=== PATIENT | male | born 1940 | race Caucasian/White ===

== ENCOUNTER → 2016-12-16 | Outpatient (REF) | payer MEDICARE ==
[2016-12-16 12:29] LABS: ALBUMIN 3.4 GM/DL (3.2-5.2); ALBUMIN/GLOBULIN RATIO 0.92 (1.00-1.93); ALKALINE PHOSPHATASE 82 U/L (45-117); ALT/SGPT 25 U/L (12-78); ANION GAP 7 MEQ/L (8-16); AST/SGOT 22 U/L (15-37); BILIRUBIN,TOTAL 0.5 MG/DL (0.2-1.0); BLOOD UREA NITROGEN 22 MG/DL (7-18); CALCIUM LEVEL 8.7 MG/DL (8.8-10.2); CARBON DIOXIDE LEVEL 29 MEQ/L (21-32); CHLORIDE LEVEL 109 MEQ/L (98-107); CHOLESTEROL LEVEL 101 MG/DL (<200); CREATININE FOR GFR 0.86 MG/DL (0.70-1.30); GLOMERULAR FILTRATION RATE > 60.0 (>42); GLUCOSE, FASTING 83 MG/DL (83-110); POTASSIUM SERUM 4.4 MEQ/L (3.5-5.1); SODIUM LEVEL 145 MEQ/L (136-145); TOTAL PROTEIN 7.1 GM/DL (6.4-8.2); TRIGLYCERIDES LEVEL 82 MG/DL (<150)
== END ==
LOC: M SFHCCLAY 09:31
PROVIDERS: ATTEND Family Medicine
DX: E78.5 Hyperlipidemia, unspecified (principal)

== ENCOUNTER → 2017-11-17 | Outpatient (REF) | payer MEDICARE ==
[2017-11-17 13:50] LABS: ALBUMIN 3.6 GM/DL (3.2-5.2); ALBUMIN/GLOBULIN RATIO 0.97 (1.00-1.93); ALKALINE PHOSPHATASE 85 U/L (45-117); ALT/SGPT 28 U/L (12-78); ANION GAP 6 MEQ/L (8-16); AST/SGOT 20 U/L (7-37); BILIRUBIN,TOTAL 0.7 MG/DL (0.2-1.0); BLOOD UREA NITROGEN 17 MG/DL (7-18); CALCIUM LEVEL 8.8 MG/DL (8.8-10.2); CARBON DIOXIDE LEVEL 28 MEQ/L (21-32); CHLORIDE LEVEL 108 MEQ/L (98-107); CHOLESTEROL LEVEL 90 MG/DL (<200); CHOLESTEROL RISK RATIO 2.432 (<5); CREATININE FOR GFR 0.93 MG/DL (0.70-1.30); GLOMERULAR FILTRATION RATE > 60.0 (>42); GLUCOSE, FASTING 113 MG/DL (70-100); HDL CHOLESTEROL 37 MG/DL (>40); LDL CHOLESTEROL 32 MG/DL (<100); NON-HDL-C 53 MG/DL; POTASSIUM SERUM 4.2 MEQ/L (3.5-5.1); SODIUM LEVEL 142 MEQ/L (136-145); TOTAL PROTEIN 7.3 GM/DL (6.4-8.2); TRIGLYCERIDES LEVEL 105 MG/DL (<150)
== END ==
LOC: M SFHCCLAY 08:50
DX: E78.5 Hyperlipidemia, unspecified (principal)
CPT/HCPCS: 80053

== ENCOUNTER → 2018-06-29 | Outpatient (CLI) | payer OTHER ==
--- NOTE | 2018-07-11 11:14 | REP ---
Left foot series: Four views. Repeat dictation. History: Left foot pain. The patient reports history of fracture last January with surgery. Recent injury to the lateral aspect of the foot with a palpable lump and pain; "like a screw is come out." The study was acquired on June 29, 2018 and is presented to me for interpretation on July 11, 2018. Radiographic findings: Four views of the left foot demonstrate overall normal mineralization. There are Achilles and plantar calcaneal spurs. There is a screw plate fixation device in the distal fifth metatarsal. The distal fifth metatarsal fracture appears to be healed. One of the screws in the distal aspect of the plate along the lateral aspect of the fifth metatarsal is partially withdrawn and it is producing a bulge in the overlying skin. No acute fracture is seen. Soft tissue swelling is noted in this region. Impression: Status post open reduction internal fixation for fifth metatarsal fracture with screw plate fixation device. One of the distal fixation screws in the distal fifth metatarsal is partially withdrawn. Electronically Signed by Markell James MD 07/11/2018 11:05 A
== END ==
LOC: M CLY 09:37
PROVIDERS: ATTEND Family Medicine
DX: M79.672 Pain in left foot (principal); Z98.890 Other specified postprocedural states
CPT/HCPCS: 73630; G0463

== ENCOUNTER 2018-07-15 14:08 | Inpatient (IN) | payer OTHER ==
[~2018-07-15] VITALS: Ht 170.2 cm; Wt 77.8 kg
--- NOTE | 2018-07-15 15:08 | REP ---
PORTABLE CHEST X-RAY: Single view. HISTORY: Cough. COMPARISON STUDY: September 27, 2012. FINDINGS: Median sternotomy wires are seen. The lungs are well inflated and clear. Heart is not felt to be enlarged. Pulmonary vasculature is not increased. Pleural angles are sharp. No significant bony abnormality is seen. IMPRESSION: Prior sternotomy. No acute disease. Electronically Signed by Markell James MD 07/15/2018 03:34 P
[2018-07-15] MEDS ORDERED: CALC600T5 PO (15:14)
[2018-07-15] MEDS ORDERED: ATOR40TA75 PO (15:14)
[2018-07-15] MEDS ORDERED: ASPI81TA26 PO (15:14)
[2018-07-15] MEDS ORDERED: FISH1000 PO (15:14)
[2018-07-15] MEDS ORDERED: TERA2CAP3 PO (15:14)
[2018-07-15] MEDS ORDERED: LISI-1046 PO (15:14)
[2018-07-15] MEDS ORDERED: METO25TA4 PO (15:14)
[2018-07-15] MEDS ORDERED: FLON1SPR (15:14)
[2018-07-15] MEDS ORDERED: OMEP-218 PO (15:14)
[2018-07-15] MEDS ORDERED: RANI1TAB6 PO (15:14)
[2018-07-15] MEDS ORDERED: VITA400C56 PO (15:14)
[2018-07-15] MEDS ORDERED: LUTE20CA PO (15:14)
--- NOTE | 2018-07-15 15:55 | CR.PDOC ---
General Date of Consultation: July 15, 2018 Referring Provider: ZENIA YUEN DO Attending Physician: CLIFTON SHERWOOD MD Consultation REASON FOR CONSULTATION/CHIEF COMPLAINT: L foot hardware infection. HISTORY OF PRESENT ILLNESS: Patient is a 78 y/o male who is s/p L 5th metatarsal ORIF January 25, 2018 while [place]. He had an uneventful postoperative course until a few weeks ago where he had increasing foot pain and was seen by his primary care doctor where an xray was taken and it was discovered that one of the screws was backing out. He noticed purulent drainage from the distal aspect of the wound yesterday and presented to the [facility] ED where a distal screw was found to be exposed and removed manually by the ED provider. Orthopedics was consulted for further management and the patient was transferred here for definitive treatment. The patient denied any fevers or chills at home but was found to have a Temp >100F at [place] and given a dose of tylenol. Patient also received 1g IV cefazolin prior to transfer. ALLERGIES: Please see below. HOME MEDICATIONS: Please see below. PAST MEDICAL HISTORY: 1. CAD. 2. Hypertension. 3. hyperlipidemia 4. GERD PAST SURGICAL HISTORY: 1. L foot 5th MT ORIF per HPI 2. CABG 10 years ago 3. Hernia repair 4. Skin cancer removal FAMILY HISTORY: non contributory SOCIAL HISTORY: Patient is retired. Lives with his in [place] during the spring/summer and resides in [place] in the winter. Does not smoke or use illicit drugs REVIEW OF SYSTEMS: CONSTITUTIONAL: + Fever at OSH, no chills or night sweats. HEENT: No headache, neck pain, or visual disturbance. CARDIOVASCULAR: + history of CABG. No recent chest pain, palpitations. RESPIRATORY: No cough, wheeze, SOB. GENITOURINARY: No pain or burning with urination. MUSCULOSKELETAL: L foot draining wound and MT ORIF per HPI. GASTROINTESTINAL: No nausea, vomiting, or diarrhea. NEUROLOGICAL: No seizures, dizziness, extremity numbness. PHYSICAL EXAMINATION: VITAL SIGNS: Please see below. GENERAL APPEARANCE: Well nourished male, appears stated age, no acute distress. HEENT: Normocephalic, atraumatic. RESPIRATORY: Non labored breathing. CARDIOVASCULAR: RRR, 2+ DP/PT pulses, BCR all digits LLE. EXTREMITIES: Focused exam of the left foot demonstrates a punctate wound at the distal lateral aspect of the forefoot with surrounding fibrinous exudative tissue. The remainder of the incision is intact with surrounding erythema, but minimal induration. No tenderness along the shaft of the metatarsal. Able to independently flex/extend all digits of the L foot with full painless ROM of the left ankle. NEUROLOGICAL: Sensation/motor intact in LLE tibial, sural, saphenous, SPN, DPN distributions. Radiographs: Plain radiographs of the left foot taken at the outside hospital (after loose screw was removed in the ED) were reviewed demonstrating plate/screw construct of the 5th metatarsal with no further evidence of screw backout or other hardware failure. Fracture appears healed/ LABORATORY DATA: Please see below. Inflammatory markers obtained at the OSH demonstrate normal WBC, elevated ESR and CRP ASSESSMENT: 78 y/o male with L foot infected hardware s/p MT ORIF January 2018 with radiographically healed fracture PLAN: I discussed with the patient the nature of his condition. Given that a screw backed out and penetrated through the skin, by definition this represents a hardware infection and the patient would benefit from operative irrigation and debridement and hardware removal. The risks and benefits to include pain, bleeding, continued infection, nerve/blood vessel injury, refracture, and anesthesia complications were discussed with the patient and he has expressed understanding and elected to proceed with Left foot irrigation and debridement and hardware removal. I counseled the patient that I will be his operating surgeon but his follow up care will be conducted by the [facility] orthopedic group. He expressed understanding and provided informed consent. Given that the patient ate while in transport here, surgery will be planned for tomorrow 16 July. Recommendations: 1. NPO at midnight 2. Hold further antibiotics until intraoperative cultures taken 3. Admit to hospitalist service for preoperative medical optimization 4. May be WBAT pending surgery Vital Signs/I&O Vital Signs Date Time Temp Pulse Resp B/P (MAP) Pulse Ox O2 Delivery O2 Flow Rate FiO2 07/15/18 14:28 07/15/18 14:08 100.0 103 20 96 Room Air Allergies Coded Allergies: No Known Allergies (Unverified , 09/23/14) Home Medications Scheduled Aspirin (Aspirin EC) 81 Mg Tablet.dr, 81 MG PO QHS, #30 (Reported) Atorvastatin Calcium (Atorvastatin Calcium) 40 Mg Tablet, 40 MG PO QHS, (Reported) Calcium Carbonate (Calcium) 600 Mg Tablet, 600 MG PO DAILY, (Reported) Fluticasone Propionate (Flonase Allergy Relief) 9.9 Ml [place].susp, 1 SPRAY NA QHS, (Reported) Lisinopril (Lisinopril) 2.5 Mg Tablet, 2.5 MG PO QHS, (Reported) Lutein (Lutein) 20 Mg Capsule, 20 MG PO QHS, (Reported) Metoprolol Tartrate (Metoprolol Tartrate) 25 Mg Tablet, 12.5 MG PO BID, (Reported) [place]-3 Fatty Acids/Fish Oil (Fish Oil 1,000 mg Capsule) 1 Each Capsule, 1,000 MG PO DAILY, (Reported) Omeprazole (Omeprazole) 20 Mg Capsule.dr, 20 MG PO Q2D, (Reported) TAKES ONCE DAILY EVERY OTHER DAY - ALTERNATES WITH RANITIDINE Ranitidine HCl (Ranitidine HCl) 150 Mg Tablet, 1 TAB PO Q2D, (Reported) TAKES TWICE A DAY EVERY OTHER DAY - ALTERNATES WITH OMEPRAZOLE Terazosin HCl (Terazosin HCl) 2 Mg Capsule, 2 MG PO QHS, (Reported) Vitamin E (Vitamin E) 400 Unit Capsule, 400 UNIT PO DAILY, (Reported) CLIFTON SHERWOOD MD July 15, 2018 15:55
--- NOTE | 2018-07-15 17:16 | ECGEPIP ---
Stationary ECG Study [facility] - ED Test Date: 2018-07-15 Pat Name: GARY WALSH Department: Room: [place] [address] Gender: M Candy Packer: apple : 1940 Requested By: ZENIA Payne Order Number: [id number] Reading MD: Michael Griffin Measurements Intervals [place] Rate: 94 P: 25 IA: 178 QRS: -13 QRSD: 90 T: 64 QT: 344 QTc: 432 Interpretive Statements SINUS RHYTHM NSTTW ABNORMALITIES NO PRIORS FOR COMPARISON Electronically Signed On 07-15-2018 17:16:42 EDT by Michael Griffin
[2018-07-15 17:45] VITALS: BP 139/69
--- NOTE | 2018-07-15 17:48 | HPEPDOC ---
[facility] Medical History & Physical Date of Admission July 15, 2018 Attending Physician: JEANIE ZAMUDIO MD History and Physical CHIEF COMPLAINT: Infection of L 5th metatarsal with expulsion of hardware HISTORY OF PRESENT ILLNESS: Patient is a 78 year-old white male, past medical history significant for CAD with 4-vessel CABG, HTN, hyperlipidemia, BPH, who presents to [facility] ED from [facility] for orthopedic consult. Patient shares that he fractured his L 5th metatarsal while cycling in [place] where he and his spend the guallpa. Patient underwent a repair with ORIF on January 25 2018. Patient reportedly recovered without sequela. Patient was seen by his primary for increasing foot pain about 4 weeks ago. An X-ray indicated one of his screws was being extruded from the bone. Yesterday morning, patient noted swelling and purulent drainage. He used topical antibiotic ointment and covered the lesion with a bandage. This morning, after increasing discomfort, patient presented to [facility] ED. During evaluation, the screw was manipulated completely free. Orthopedics at [facility] was consulted and the patient was transferred after a single 1g IV cefazolin for further management. In the ED, patient presented with a temperature of 100.0F and was given Tylenol. Patient was also seen and evaluated by Dr. Mosquera who agreed to take the patient to surgery at some point tomorrow. PAST MEDICAL HISTORY: 1. Coronary artery disease, status post CABG 2. Hypertension 3. Hyperlipidemia 4. Gastroesophageal reflux disease 6. BPH PAST SURGICAL HISTORY: 1. Fifth metatarsal, left foot fracture and ORIF, 01/22 2. 4 vessel bypass, 2008 3. Hernia repair 4. Skin cancer removal 4 SOCIAL HISTORY: Marital status: Resides in: Spends part-time in [place] in the summer months, [place] over the winter months. Employment: Retired Tobacco use: Denies smoking history ETOH: Reports occasional use Illicit drug use: Denies illicit drug use FAMILY HISTORY: Noncontributory given patient's advanced age ALLERGIES: Please see below. REVIEW OF SYSTEMS: CONSTITUTIONAL: Patient reports a temperature upon arrival to the emergency department with resolution following Tylenol. Patient denies any recent history of chills, night sweats, changes in weight or generalized fatigue HEENT: She denies headaches, changes in vision, difficulty swallowing CARDIOVASCULAR: Patient denies any chest pain/tightness/discomfort, denies palpitations RESPIRATORY: Patient denies any difficulty breathing, recent cough or wheeze, orthopnea or paroxysmal nocturnal dyspnea GASTROINTESTINAL: Patient reports a history of reflux for which he takes medication, denies upset stomach, abdominal pain, diarrhea or constipation. No recent nausea or vomiting GENITOURINARY: Patient takes medication for BPH, denies dysuria SKIN: Patient denies any new rashes, bruising, new or resolving skin lesions MUSCULOSKELETAL: Patient reports discomfort in the left lateral foot as per HPI, no other muscle aches or pains NEUROLOGICAL: Patient denies history of seizure, LOC, AMS HOME MEDICATIONS: Please see below. PHYSICAL EXAMINATION: VITAL SIGNS: Temperature 100.0, pulse 103, respiratory rate 20, blood pressure 132/71, pulse oximetry 96% on room air. GENERAL APPEARANCE: Patient was found to be seated upright in his emergency room bed. Wearing a hospital gown. He is in no acute distress, able to answer TelePh[employer] ns appropriately, and actively participate in his care HEENT: Head is normocephalic, atraumatic, EOMI, sclera nonicteric, good oral hygiene, trachea is midline, no cervical lymphadenopathy CARDIOVASCULAR: Regular rate and rhythm. Systolic ejection murmur appreciated left sternal border LUNGS: Clear to auscultation bilaterally, free of wheezes rales or rhonchi ABDOMEN: Soft, nontender, non-protuberant MUSCULOSKELETAL: Left foot, lateral aspect of the 5th metatarsal demonstrates swelling, erythema with minimal expressible drainage. Minimal surrounding induration and minimal tenderness. ROM of the infected appendage, forefoot and ankle intact. EXTREMITIES: No calf tenderness bilaterally, NEUROLOGICAL: No numbness or tingling, no focal neurologic deficits, patient is at baseline mentation per patient's who was at bedside PSYCHIATRIC: Mood and affect are appropriate LABORATORY DATA: See below. IMAGING: Chest x-ray (07/15/18): Prior sternotomy, no acute disease. ASSESSMENT: PLAN: Orthopedic hardware infection requiring revision -Plan to remove remaining hardware in the OR tomorrow with Dr. Mosquera -Start cefazolin 2 grams q8hrs IV -Full diet with order for NPO after midnight -Pain management per Orthopedics CAD -Continue home metoprolol -Hold Lisinopril Hyperlipidemia -Continue home atorvastatin BPH -Continue home Terazosin GERD -Famotidine -Omeprazole DVT PROPHYLAXIS: TEDs and Sequentials CODE STATUS: FULL CODE Vital Signs Vital Signs Date Time Temp Pulse Resp B/P (MAP) Pulse Ox O2 Delivery O2 Flow Rate FiO2 07/15/18 14:28 07/15/18 14:08 100.0 103 20 96 Room Air Home Medications Scheduled Aspirin (Aspirin EC) 81 Mg Tablet.dr, 81 MG PO QHS Atorvastatin Calcium (Atorvastatin Calcium) 40 Mg Tablet, 40 MG PO QHS Calcium Carbonate (Calcium) 600 Mg Tablet, 600 MG PO DAILY Fluticasone Propionate (Flonase Allergy Relief) 9.9 Ml [place].susp, 1 SPRAY NA QHS Lisinopril (Lisinopril) 2.5 Mg Tablet, 2.5 MG PO QHS Lutein (Lutein) 20 Mg Capsule, 20 MG PO QHS Metoprolol Tartrate (Metoprolol Tartrate) 25 Mg Tablet, 12.5 MG PO BID [place]-3 Fatty Acids/Fish Oil (Fish Oil 1,000 mg Capsule) 1 Each Capsule, 1,000 MG PO DAILY Omeprazole (Omeprazole) 20 Mg Capsule.dr, 20 MG PO Q2D TAKES ONCE DAILY EVERY OTHER DAY - ALTERNATES WITH RANITIDINE Ranitidine HCl (Ranitidine HCl) 150 Mg Tablet, 1 TAB PO Q2D TAKES TWICE A DAY EVERY OTHER DAY - ALTERNATES WITH OMEPRAZOLE Terazosin HCl (Terazosin HCl) 2 Mg Capsule, 2 MG PO QHS Vitamin E (Vitamin E) 400 Unit Capsule, 400 UNIT PO DAILY Allergies Coded Allergies: No Known Allergies (Unverified , 09/23/14) GME ATTESTATION GME ATTESTATION My faculty preceptor for this patient encounter was physically present during the encounter and was fully available. All aspects of the patient interview, examination, medical decision making process, and medical care plan development were reviewed and approved by the faculty preceptor. The faculty preceptor is aware and concurs with the plan as stated in the body of this note and will attest to such by his/her cosignature. ATTENDING NOTE I have personally interviewed the patient and done a physical examination. I have reviewed the residents's documentation and discussed the history and assessment and plan with him. I agree with the above documentation with the following addendum. Patient is low cardiac risk for the proposed procedure and is medically optimized at present. RUBY WERENR DO July 15, 2018 17:47 JEANIE ZAMUDIO MD July 16, 2018 14:32
[2018-07-15] MEDS ORDERED: ATORVASTATIN 20 MG TAB PO SCH (21:00)
[2018-07-15] MEDS ORDERED: TERAZOSIN 1 MG CAP PO SCH (21:00)
[2018-07-15] MEDS ORDERED: FLUTICASONE PROP 0.05% NASAL SPRAY 16 GM (FLONASE) NARES SCH (21:00)
[2018-07-15 22:00] VITALS: BP 146/76
[2018-07-15] MEDS: METOPROLOL TART 12.5 MG PER 1/2 TAB PO SCH (22:11)
[2018-07-16] VITALS (8 sets, daily range): BP systolic 103–141; BP diastolic 56–77
[2018-07-16 06:32] LABS: HEMATOCRIT 40.4 % (42.0-52.0); HEMOGLOBIN 13.2 g/dl (13.5-17.5); MEAN CORPUSCULAR HEMOGLOBIN 29.7 pg (27.0-33.0); MEAN CORPUSCULAR HGB CONC 32.7 g/dl (32.0-36.5); MEAN CORPUSCULAR VOLUME 90.8 fl (80.0-96.0); PLATELET COUNT, AUTOMATED 135 10^3/uL (150-450); RED BLOOD COUNT 4.45 10^6/uL (4.30-6.10); WHITE BLOOD COUNT 9.7 10^3/uL (4.0-10.0)
[2018-07-16 06:54] LABS: BLOOD UREA NITROGEN 18 MG/DL (7-18); CALCIUM LEVEL 8.6 MG/DL (8.8-10.2); CARBON DIOXIDE LEVEL 26 MEQ/L (21-32); CHLORIDE LEVEL 108 MEQ/L (98-107); CREATININE FOR GFR 1.01 MG/DL (0.70-1.30); GLOMERULAR FILTRATION RATE > 60.0 (>42); GLUCOSE, FASTING 110 MG/DL (70-100); POTASSIUM SERUM 4.1 MEQ/L (3.5-5.1); SODIUM LEVEL 139 MEQ/L (136-145)
[2018-07-16] MEDS ORDERED: FAMOTIDINE 20 MG TAB PO SCH (09:00)
[2018-07-16] MEDS ORDERED: LIDOCAINE 2% INJ 100 MG/5 ML SDV (FOR ANES.) As Ordered ONE (09:31)
[2018-07-16] MEDS ORDERED: PROPOFOL 200 MG/20 ML VIAL As Ordered ONE (09:31)
[2018-07-16] MEDS ORDERED: fentaNYL 100 MCG/2 ML INJECTION (J3010) As Ordered ONE (09:31)
[2018-07-16] MEDS ORDERED: MIDAZOLAM INJ 2 MG/2 ML VIAL (J2250) As Ordered ONE (09:31)
[2018-07-16] MEDS ORDERED: BUPIVACAINE HCL 0.5% 30 ML VIAL As Ordered ONE (09:32)
[2018-07-16] MEDS ORDERED: ceFAZolin 2 GM/D5W 50 ML IV BAG (J0690 PER 500MG) As Ordered ONE (09:32)
[2018-07-16] MEDS ORDERED: PHENYLephrine HCL 500 MCG/5 ML (100MCG/ML) SYRINGE (J2370) As Ordered ONE ×2 (09:33→10:06)
[2018-07-16] MEDS ORDERED: ONDANSETRON 4MG/2ML VIAL (J2405) As Ordered ONE (09:43)
[2018-07-16] MEDS ORDERED: dexameTHASONE 4 MG/ML 1ML VIAL (J1100) As Ordered ONE (09:43)
[2018-07-16] MEDS ORDERED: DESFLURANE 240 ML INHALANT As Ordered ONE (09:49)
[2018-07-16] MEDS ORDERED: fentaNYL 100 MCG/2 ML INJECTION (J3010) IV PRN (10:45)
--- NOTE | 2018-07-16 11:30 | REP ---
PORTABLE LEFT FOOT: TWO VIEWS. HISTORY: Postop evaluation. Hardware removal. Comparison study, June 29, 2018. FINDINGS: AP and lateral views of the left foot taken in an overlying sandal-shoe device confirms the presence of hardware removal from the 5th metatarsal. Plantar and Achilles calcaneal spurring is also noted. Electronically Signed by Markell James MD 07/16/2018 11:35 A
[2018-07-16] MEDS: METOPROLOL TART 12.5 MG PER 1/2 TAB PO SCH ×2 (11:52→20:48)
[2018-07-16] MEDS ORDERED: traMADol 50 MG TAB PO PRN ×2 (12:30)
[2018-07-16] MEDS ORDERED: ACETAMINOPHEN TAB 650MG DOSE (2X325MG) PO PRN (12:30)
--- NOTE | 2018-07-16 14:39 | IPNPDOC ---
Text Note Date of Service The patient was seen on 07/16/18. NOTE SUBJECTIVE: Pateint going to the OR today for removal of hardware from the left foot. No fever or chills, foot swelling a little reduced . No chest pain or sob no nausea or vomiting or diarrhea. PHYSICAL EXAMINATION: VITAL SIGNS: As below GENERAL APPEARANCE: Patient was found to be seated upright in his emergency room bed. Wearing a hospital gown. He is in no acute distress, able to answer questions appropriately, and actively participate in his care HEENT: Head is normocephalic, atraumatic, EOMI, sclera nonicteric, good oral hygiene, trachea is midline, no cervical lymphadenopathy CARDIOVASCULAR: Regular rate and rhythm. Systolic ejection murmur appreciated left sternal border LUNGS: Clear to auscultation bilaterally, free of wheezes rales or rhonchi ABDOMEN: Soft, nontender, non-protuberant MUSCULOSKELETAL: Left foot, lateral aspect of the 5th metatarsal demonstrates swelling, erythema with minimal expressible drainage. Minimal surrounding induration and minimal tenderness. ROM of the infected appendage, forefoot and ankle intact. EXTREMITIES: No calf tenderness bilaterally, NEUROLOGICAL: No numbness or tingling, no focal neurologic deficits, patient is at baseline mentation per patient's who was at bedside PSYCHIATRIC: Mood and affect are appropriate LABORATORY DATA: personally reviewed See below. Xrays personally reviewed. foot xray shows hard crawford has been removed successfully. ASSESSMENT: Patient is a 78 year-old white male, past medical history significant for CAD with 4-vessel CABG, HTN, hyperlipidemia, BPH, who presents to [facility] ED from [facility] for orthopedic consult. Patient shares that he fractured his L 5th metatarsal while cycling in [place] where he and his spend the gu[place]pa. Patient underwent a repair with ORIF on January 25 2018. Patient reportedly recovered without sequela. Patient was seen by his primary for increasing foot pain about 4 weeks ago. An X-ray indicated one of his screws was being extruded from the bone. Yesterday morning, patient noted swelling and purulent drainage. He used topical antibiotic ointment and covered the lesion with a bandage. This morning, after increasing discomfort, patient presented to [facility] ED. During evaluation, the screw was manipulated completely free. Orthopedics at [facility] was consulted and the patient was transferred after a single 1g IV cefazolin for further management. In the ED, patient presented with a temperature of 100.0F and was given Tylenol. Patient was also seen and evaluated by Dr. Mosquera who agreed to take the patient to surgery at some point tomorrow. Left foot abscess with hard crawford expulsion. -Fifth metatarsal, left foot fracture and ORIF, 01/22 -Orthopedic hardware infection requiring revision -removal of remaining hardware in the OR with Dr. Mosquera -cefazolin 2 grams q8hrs IV -Pain management per Orthopedics CAD s/p CABG -Continue home metoprolol -Hold Lisinopril Hyperlipidemia -Continue home atorvastatin BPH -Continue home Terazosin GERD -Famotidine -Omeprazole DVT PROPHYLAXIS: TEDs and Sequentials CODE STATUS: FULL CODE VS,Fishbone, I+O VS, Fishbone, I+O Laboratory Tests 07/16/18 06:04 Red Blood Count 4.45, Mean Corpuscular Volume 90.8, Mean Corpuscular Hemoglobin 29.7, Mean Corpuscular Hemoglobin Concent 32.7, Red Cell Distribution Width 12.8, Calcium Level 8.6 L Vital Signs Date Time Temp Pulse Resp B/P (MAP) Pulse Ox O2 Delivery O2 Flow Rate FiO2 07/16/18 11:52 86 138/75 07/16/18 11:10 97.3 16 92 07/15/18 17:45 Room Air I&O- Last 24 Hours up to 6 AM 07/16/18 06:00 Intake Total 300 ml Output Total 0 ml Balance 300 ml JEANIE ZAMUDIO MD July 16, 2018 14:39
[2018-07-16] MEDS: ceFAZolin SOD 1 GM in D5W MINI-BAG PLUS 50 ML IV SCH (17:22)
[2018-07-16] MEDS: FAMOTIDINE 20 MG TAB PO SCH (20:46)
[2018-07-16] MEDS: TERAZOSIN 1 MG CAP PO SCH (20:47)
[2018-07-16] MEDS: ATORVASTATIN 20 MG TAB PO SCH (20:48)
[2018-07-17] VITALS: BP 130/63
[2018-07-17] MEDS: ceFAZolin SOD 1 GM in D5W MINI-BAG PLUS 50 ML IV SCH ×3 (02:21→17:45)
[2018-07-17 04:00] VITALS: BP 115/68
[2018-07-17] MEDS ORDERED: OMEPRAZOLE 20 MG CAP PO SCH (09:00)
[2018-07-17] MEDS: OMEPRAZOLE 20 MG CAP PO SCH (09:00)
[2018-07-17] MEDS: METOPROLOL TART 12.5 MG PER 1/2 TAB PO SCH ×2 (09:31→21:04)
[2018-07-17] MEDS: FAMOTIDINE 20 MG TAB PO SCH ×2 (09:32→21:04)
--- NOTE | 2018-07-17 09:38 | RO ---
DATE OF PROCEDURE: 07/16/2018 PREOPERATIVE DIAGNOSIS: Left foot infected hardware. POSTOPERATIVE DIAGNOSIS: Left foot infected hardware. PROCEDURE PERFORMED: Left foot irrigation and debridement and hardware removal. SURGEON: Dr. Jorge Luis Mosquera TAPPER HELPER: None. ANESTHESIA PROVIDER: Dr. Jolie Huerta ANESTHESIA: Laryngeal mask airway (LMA) and local. ANTIBIOTICS: 2g IV Ancef given after cultures taken ESTIMATED BLOOD LOSS: 20 mL. MATERIALS SENT TO LAB: Left foot wound cultures, anaerobic and aerobic. IMPLANTS REMOVED: 5-hole Striker mini frag plate. COMPLICATIONS: None. INDICATIONS FOR PROCEDURE; Danis Mcgee is a 78-year-old male who underwent left foot fifth metatarsal open reduction internal fixation in [place] in January 2018. He had an uneventful postoperative course until a couple of weeks ago where he had increasing pain and radiograph was taken that showed a screw backing out. He then developed drainage from a sinus tract remote to the surgical incision. He presented to an outside hospital where one of the screws was protruding through the skin and had purulent drainage from the sinus tract. He was then transferred down here for definitive management. Given the purulent drainage and exposed hardware, this is by definition a hardware infection. Radiographically, the fracture appeared to be healed. I discussed with the patient the risks, benefits, indication, and alternatives, operative versus nonoperative management, and recommended operative irrigation and debridement with hardware removal. The patient expressed understanding and provided informed consent. I counseled him that I will be his operating surgeon and his followup care will be conducted by [facility]. He expressed understanding of this arrangement and agreed to proceed. INTRAOPERATIVE FINDINGS: There was purulent drainage from a sinus tract that was about 1 cm inferior to the distal aspect of the surgical wound clinically. Radiographically, the fracture appeared to be healed and the hardware was intact. DESCRIPTION OF PROCEDURE: The patient was identified in the preop holding area and the surgical site was marked. He was then brought to the operating room where he was placed under LMA anesthesia. He was positioned supine on a regular table with all bony prominences appropriately padded. Sequential compression device (SCD) was placed on the nonoperative extremity for deep vein thrombosis (DVT) prophylaxis. He was then prepped and draped in the usual sterile fashion. A final time-out was performed. I utilized the previous incision and dissected through skin and subcutaneous tissue. There was purulent drainage expressible from the sinus tract which was remote to the incision. Once I got to the level of the plate, there was purulent drainage emanating from the distal aspect of the plate. I obtained cultures intraoperatively followed by removal of the plate and remaining screws to include the A to P lag screw. After removal all hardware, the screw holes were curetted. Any infected appearing tissue was debrided. I also excised the sinus tract followed by thorough irrigation with 6 liters of normal saline. The wound was then closed. The residual sinus tract was closed with a single #3-0 nylon simple suture. The surgical wound was closed with running #3-0 nylon suture in horizontal mattress fashion. I injected 5 mL of 0.5% Marcaine without epinephrine into the wound for local pain control. Sterile dressings were applied. This ended the procedure. I was present and scrubbed in for all portions of the case. POSTOPERATIVE PLAN: The patient will return to the hospital floor for IV antibiotics. He will be weightbearing as tolerated to the left lower extremity. He will undergo physical therapy in the hospital and will be discharged home pending wound culture results. LIAM
--- NOTE | 2018-07-17 10:53 | IPNPDOC ---
Text Note Date of Service The patient was seen on 07/17/18. NOTE SUBJECTIVE: S/p OR on 07/16/18 rest of the hardware was removed. No complaints today , able to bear weight on the foot. wound cultures showing staph no sensitivity yet. PHYSICAL EXAMINATION: VITAL SIGNS: As below GENERAL APPEARANCE: Patient was found to be seated upright in his emergency room bed. Wearing a hospital gown. He is in no acute distress, able to answer questions appropriately, and actively participate in his care HEENT: Head is normocephalic, atraumatic, EOMI, sclera nonicteric, good oral hygiene, trachea is midline, no cervical lymphadenopathy CARDIOVASCULAR: Regular rate and rhythm. Systolic ejection murmur appreciated l eft sternal border LUNGS: Clear to auscultation bilaterally, free of wheezes rales or rhonchi ABDOMEN: Soft, nontender, non-protuberant MUSCULOSKELETAL: Left foot, lateral aspect of the 5th metatarsal demonstrates swelling, erythema with minimal expressible drainage. Minimal surrounding induration and minimal tenderness. ROM of the infected appendage, forefoot and ankle intact. EXTREMITIES: No calf tenderness bilaterally, NEUROLOGICAL: No numbness or tingling, no focal neurologic deficits, patient is at baseline mentation per patient's who was at bedside PSYCHIATRIC: Mood and affect are appropriate LABORATORY DATA: personally reviewed See below. ASSESSMENT: Patient is a 78 year-old white male, past medical history significant for CAD with 4-vessel CABG, HTN, hyperlipidemia, BPH, who presents to [facility] ED from [facility] for orthopedic consult. Patient shares that he fractured his L 5th metatarsal while cycling in [place] where he and his spend the guallpa. Patient underwent a repair with ORIF on January 25 2018. Patient reportedly recovered without sequela. Patient was seen by his primary for increasing foot pain about 4 weeks ago. An X-ray indicated one of his screws was being extruded from the bone. Yesterday morning, patient noted swelling and purulent drainage. He used topical antibiotic ointment and covered the lesion with a bandage. This morning, after increasing discomfort, patient presented to [facility] ED. During evaluation, the screw was manipulated completely free. Orthopedics at [facility] was consulted and the patient was transferred after a single 1g IV cefazolin for further management. In the ED, patient presented with a temperature of 100.0F and was given Tylenol. Patient was also seen and evaluated by Dr. Mosquera who agreed to take the patient to surgery at some point tomorrow. Left foot abscess with hard crawford expulsion. -Fifth metatarsal, left foot fracture and ORIF, 01/22 -Orthopedic hardware infection requiring removal of hardware - OR with Dr. Mosquera had Left foot irrigation and debridement and hardware removal. -cefazolin 2 grams q8hrs IV -Pain management per Orthopedics - culture staph no sensitivity yet. CAD s/p CABG -Continue home metoprolol -Hold Lisinopril Hyperlipidemia -Continue home atorvastatin BPH -Continue home Terazosin GERD -Famotidine -Omeprazole DVT PROPHYLAXIS: lovenox CODE STATUS: FULL CODE VS,Fishbone, I+O VS, Fishbone, I+O Vital Signs Date Time Temp Pulse Resp B/P (MAP) Pulse Ox O2 Delivery O2 Flow Rate FiO2 07/17/18 09:31 77 115/68 07/17/18 04:00 97.6 18 98 07/16/18 16:00 2.0 07/15/18 17:45 Room Air I&O- Last 24 Hours up to 6 AM 07/17/18 06:00 Intake Total 1775 ml Output Total 20 ml Balance 1755 ml JEANIE ZAMUDIO MD July 17, 2018 10:53
[2018-07-17] MEDS: ENOXAPARIN 40 MG/0.4 ML SYRINGE (J1650) SC SCH (12:11)
[2018-07-17 14:00] VITALS: BP 126/60
[2018-07-17] MEDS: TERAZOSIN 1 MG CAP PO SCH (21:04)
[2018-07-17] MEDS: ATORVASTATIN 20 MG TAB PO SCH (21:04)
[2018-07-17 22:00] VITALS: BP 135/75
[2018-07-18] MEDS: ceFAZolin SOD 1 GM in D5W MINI-BAG PLUS 50 ML IV SCH (02:02)
[2018-07-18 06:00] VITALS: BP 159/76
[2018-07-18 06:15] LABS: BASO % 0.3 % (0.0-1.0); EOS # 0.1 10^3/uL (0.0-0.50); EOS % 1.8 % (0.0-3.0); HEMATOCRIT 36.6 % (42.0-52.0); HEMOGLOBIN 11.8 g/dl (13.5-17.5); LYMPH # 1.4 10^3/uL (1.5-4.5); MEAN CORPUSCULAR HGB CONC 32.2 g/dl (32.0-36.5); MEAN CORPUSCULAR VOLUME 89.9 fl (80.0-96.0); MONO # 0.6 10^3/uL (0.0-0.8); MONO % 7.3 % (0.0-5.0); NEUTROPHILS # 5.5 10^3/uL (1.8-7.7); NEUTROPHILS % 71.9 % (36.0-66.0); PLATELET COUNT, AUTOMATED 165 10^3/uL (150-450); RED BLOOD COUNT 4.07 10^6/uL (4.30-6.10); WHITE BLOOD COUNT 7.7 10^3/uL (4.0-10.0)
[2018-07-18 06:48] LABS: BLOOD UREA NITROGEN 29 MG/DL (7-18); CALCIUM LEVEL 8.3 MG/DL (8.8-10.2); CARBON DIOXIDE LEVEL 26 MEQ/L (21-32); CHLORIDE LEVEL 112 MEQ/L (98-107); CREATININE FOR GFR 0.98 MG/DL (0.70-1.30); GLOMERULAR FILTRATION RATE > 60.0 (>42); GLUCOSE, FASTING 98 MG/DL (70-100); POTASSIUM SERUM 4.2 MEQ/L (3.5-5.1); SODIUM LEVEL 144 MEQ/L (136-145)
[2018-07-18] MEDS: OMEPRAZOLE 20 MG CAP PO SCH (08:52)
[2018-07-18] MEDS: METOPROLOL TART 12.5 MG PER 1/2 TAB PO SCH ×2 (08:52→21:32)
[2018-07-18] MEDS: FAMOTIDINE 20 MG TAB PO SCH ×2 (08:53→21:00)
[2018-07-18] MEDS: ENOXAPARIN 40 MG/0.4 ML SYRINGE (J1650) SC SCH (08:53)
[2018-07-18] MEDS ORDERED: CEFTAROLINE FOSAMIL 600 MG in D5W MINI-BAG PLUS 50 ML IV SCH (09:00)
[2018-07-18 15:56] LABS: C REACTIVE PROTEIN QUANTITATIV 3.01 MG/DL (0.00-0.30)
[2018-07-18] MEDS ORDERED: LINE600T11 PO ×2 (17:33→17:35)
[2018-07-18] MEDS: ATORVASTATIN 20 MG TAB PO SCH (21:30)
[2018-07-18] MEDS: LINEZOLID 600MG TABLET (ZYVOX) PO SCH (21:32)
[2018-07-18] MEDS: TERAZOSIN 1 MG CAP PO SCH (21:32)
[2018-07-18 22:00] VITALS: BP 151/75
--- NOTE | 2018-07-19 02:51 | CR ---
DATE OF CONSULTATION: 07/15/2018 Infectious disease consultation asked to consult by orthopedic surgery for evaluation of methicillin-resistant Staphylococcus aureus (MRSA) infection of left fifth metatarsal with expulsion of hardware. Mr. Mcgee is a pleasant 78-year-old gentleman who underwent open reduction internal fixation in [place] in January 2018 after he had fractured his left fifth metatarsal right side plane. The patient had surgery there without complication. He moved back to [facility] where he spends his [place] and the past 3 weeks ago he bumped his left foot while barefoot and has had increasing pain since then. He was seen by his primary care provider and an x-ray indicated that one of the screws was loose. He was referred to orthopedic surgery and was still waiting for an appointment when he noticed that he was having increasing swelling and purulent discharge. He used topical antibiotics and came to the [facility] emergency room when he noticed that the screw was coming out. He denied having any fever or chills. No nausea, vomiting or diarrhea. No abdominal pain. The patient was transferred from [facility] to [facility] and the patient was taken to the operating room for removal of the hardware. The bone had healed completely. He was given IV cefazolin perioperatively. His past medical history is significant for coronary artery disease status post four-vessel coronary artery bypass grafting (CABG), hypertension, hyperlipidemia and benign prostatic hypertrophy. He has no history of diabetes, gastroesophageal reflux disease. ALLERGIES: No known drug allergies. MEDICATIONS: - ceftazidime 600 mg intravenous (IV) every 12 hours started on July 18 - intravenous (IV) cefazolin - on July 16 to July 18 he received IV cefazolin 1 gram every 8 hours - Lovenox 40 mg subcutaneous daily - omeprazole 20 mg by mouth daily - metoprolol 12.5 mg by mouth twice a day - terazosin 2 mg by mouth at bedtime - atorvastatin 40 mg by mouth at bedtime - famotidine 20 mg by mouth twice a day - Tylenol as needed - tramadol as needed LABORATORY DATA: White count was 9.7 on admission. Today was it 7.7. Hemoglobin 11.8, hematocrit 36.6, platelets 165, 72% neutrophils, 18% lymphocytes, 7% monocytes. Sodium 144, potassium 4.2, chloride 112, bicarbonate 26, BUN 20, creatinine 0.98, glucose 98, calcium 8.38, C-reactive protein (CRP) 3.01. Wound culture was positive for MRSA. Anaerobic culture is still pending but I called the lab and they suspect it is going to be no growth. IMAGING STUDIES: Foot x-ray done on 07/16/2018. Postoperative evaluation shows plantar an acute calcaneal spur noted, removal of the hardware. Chest x-ray showed no acute disease. Median sternotomy wires are seen. Lungs are well inflated. PHYSICAL EXAMINATION: GENERAL: Healthy-looking elderly gentleman in no acute distress. VITALS: Temperature is 97.1, pulse 69, respirations 17, blood pressure 159/76, O2 sat 97% on room air. HEART: Normal S1-S2. No murmurs, rubs or gallops. LUNGS: Lungs are clear. No wheezes, rales or rhonchi. ABDOMEN: Soft, nontender. No hepatosplenomegaly. BACK: No cerebrovascular accident (CVA) or lumbosacral tenderness. EXTREMITIES: No clubbing, cyanosis or edema. The left foot has an incision along his left fifth metatarsal. No tenderness. No redness. No swelling. Sutures in place. No purulence. IMPRESSION: Postoperative wound infection with hardware status post open reduction internal fixation. Culture positive for methicillin-resistant Staphylococcus aureus (MRSA). This was most likely triggered by trauma. The patient's fracture had healed and therefore all the hardware has been removed. The patient does not have any residual symptoms. He could be treated with by mouth antibiotics. We will treat with 2-4 weeks for presumptive osteomyelitis. PLAN: The patient could be discharged home on by mouth linezolid 600 mg by mouth twice a day and two-week prescription was sent to his insurance. He will follow up in my office in 2 weeks with a complete blood count (CBC), sedimentation rate, C-reactive protein (CRP) and then we will decide whether he needs any more antibiotics. The patient was encouraged to use probiotics. The case has been discussed with Dr. Wander Arellano who agrees with the plan.
[2018-07-19 06:00] VITALS: BP 140/78
[2018-07-19 06:40] LABS: BASO % 0.6 % (0.0-1.0); EOS # 0.2 10^3/uL (0.0-0.50); EOS % 3.3 % (0.0-3.0); HEMATOCRIT 41.6 % (42.0-52.0); HEMOGLOBIN 13.4 g/dl (13.5-17.5); LYMPH # 1.5 10^3/uL (1.5-4.5); MEAN CORPUSCULAR HEMOGLOBIN 29.1 pg (27.0-33.0); MEAN CORPUSCULAR HGB CONC 32.2 g/dl (32.0-36.5); MEAN CORPUSCULAR VOLUME 90.4 fl (80.0-96.0); MONO # 0.5 10^3/uL (0.0-0.8); MONO % 9.5 % (0.0-5.0); PLATELET COUNT, AUTOMATED 173 10^3/uL (150-450); WHITE BLOOD COUNT 5.2 10^3/uL (4.0-10.0)
[2018-07-19 07:05] LABS: BLOOD UREA NITROGEN 22 MG/DL (7-18); CALCIUM LEVEL 8.5 MG/DL (8.8-10.2); CARBON DIOXIDE LEVEL 27 MEQ/L (21-32); CHLORIDE LEVEL 107 MEQ/L (98-107); CREATININE FOR GFR 1.01 MG/DL (0.70-1.30); GLOMERULAR FILTRATION RATE > 60.0 (>42); GLUCOSE, FASTING 97 MG/DL (70-100); POTASSIUM SERUM 3.9 MEQ/L (3.5-5.1); SODIUM LEVEL 139 MEQ/L (136-145)
[2018-07-19 08:29] VITALS: BP 140/78
[2018-07-19] MEDS: METOPROLOL TART 12.5 MG PER 1/2 TAB PO SCH (08:29)
[2018-07-19] MEDS: OMEPRAZOLE 20 MG CAP PO SCH (08:29)
[2018-07-19] MEDS: LINEZOLID 600MG TABLET (ZYVOX) PO SCH (08:29)
[2018-07-19] MEDS: FAMOTIDINE 20 MG TAB PO SCH (08:30)
[2018-07-19] MEDS: ENOXAPARIN 40 MG/0.4 ML SYRINGE (J1650) SC SCH (08:31)
--- NOTE | 2018-07-19 11:43 | DS.PDOC ---
Discharge Summary General Date of Admission July 15, 2018 at 15:48 Date of Discharge 07/19/18 Discharge Summary PROCEDURES PERFORMED DURING STAY: Left foot irrigation and debridement and hardware removal. DISCHARGE DIAGNOSES: Left foot abscess and cellulitis Left foot Infected hardware Left foot MRSA Osteomyelitis CAD with h/o CABG Hyperlipidemia BPH GERD COMPLICATIONS/CHIEF COMPLAINT: Foot Abscess Left. HISTORY OF PRESENT ILLNESS: See history and physical HOSPITAL COURSE: Patient is a 78 year-old white male, past medical history significant for CAD with 4-vessel CABG, HTN, hyperlipidemia, BPH, who presents to [facility] ED from [facility] for orthopedic consult. Patient shares that he fractured his L 5th metatarsal while cycling in [place] where he and his spend the [place]. Patient underwent a repair with ORIF on January 25 2018. Patient reportedly recovered without sequela. Patient was seen by his primary for increasing foot pain about 4 weeks ago. An X-ray indicated one of his screws was being extruded from the bone. Yesterday morning, patient noted swelling and purulent drainage. He used topical antibiotic ointment and covered the lesion with a bandage. This morning, after increasing discomfort, patient presented to [facility] ED. During evaluation, the screw was manipulated completely free. Orthopedics at [facility] was consulted and the patient was transferred after a single 1g IV cefazolin for further management. In the ED, patient presented with a temperature of 100.0F and was given Tylenol. Patient was also seen and evaluated by Dr. Mosquera who agreed to take the patient to surgery at some point tomorrow. Left foot abscess with hard crawford infection and Osteomyelitis Fifth metatarsal, left foot fracture and ORIF, 01/22 Orthopedic hardware infection requiring removal of hardware OR with Dr. Mosquera had Left foot irrigation and debridement and hardware removal. Culture MRSA will be discharged with Linezolid. Left foot Osteomyelitis Infected hardware removed discharged with Linezolid for 2 weeks. CAD s/p CABG continue home meds Hyperlipidemia Continue home atorvastatin BPH Continue home Terazosin GERD Famotidine Omeprazole DISCHARGE MEDICATIONS: Please see below. ALLERGIES: Please see below. PHYSICAL EXAMINATION ON DISCHARGE: VITAL SIGNS: Please see below. GENERAL APPEARANCE: Patient was found to be seated upright in his emergency room bed. Wearing a hospital gown. He is in no acute distress, able to answer questions appropriately, and actively participate in his care HEENT: Head is normocephalic, atraumatic, EOMI, sclera nonicteric, good oral hygiene, trachea is midline, no cervical lymphadenopathy CARDIOVASCULAR: Regular rate and rhythm. Systolic ejection murmur appreciated left sternal border LUNGS: Clear to auscultation bilaterally, free of wheezes rales or rhonchi ABDOMEN: Soft, nontender, non-protuberant MUSCULOSKELETAL: Left foot, lateral aspect of the 5th metatarsal demonstrates swelling, erythema resolved. No discharge. Has a small surgical incision. EXTREMITIES: No calf tenderness bilaterally, NEUROLOGICAL: No numbness or tingling, no focal neurologic deficits, patient is at baseline mentation per patient's who was at bedside PSYCHIATRIC: Mood and affect are appropriate LABORATORY DATA: Please see below. ACTIVITY: [As tolerated]. DIET: As tolerated DISPOSITION: 01 Home, Self-Care. DISCHARGE INSTRUCTIONS: Follow up with Dr Reynolds in 2 weeks Follow up with Ortho as directed. Follow up PMD in 1 week ITEMS TO FOLLOWUP ON ON OUTPATIENT: CBC, ESR and CRP in [address] Reynolds DISCHARGE CONDITION: [Stable]. TIME SPENT ON DISCHARGE: Greater than 30 minutes. Vital Signs/I&Os Vital Signs Date Time Temp Pulse Resp B/P (MAP) Pulse Ox O2 Delivery O2 Flow Rate FiO2 07/19/18 08:29 68 140/78 07/19/18 06:00 97.8 16 95 07/16/18 16:00 2.0 07/15/18 17:45 Room Air I&O- Last 24 Hours up to 6 AM 07/19/18 06:00 Intake Total 1160 ml Balance 1160 ml Laboratory Data Labs 24H Laboratory Tests 2 07/19/18 06:19: Immature Granulocyte % (Auto) 0.6, White Blood Count 5.2, Red Blood Count 4.60, Hemoglobin 13.4L, Hematocrit 41.6L, Mean Corpuscular Volume 90.4, Mean Corpuscular Hemoglobin 29.1, Mean Corpuscular Hemoglobin Concent 32.2, Red Cell Distribution Width 12.9, Platelet Count 173, Neutrophils (%) (Auto) 58.0, Lymphocytes (%) (Auto) 28.0, Monocytes (%) (Auto) 9.5H, Eosinophils (%) (Auto) 3.3H, Basophils (%) (Auto) 0.6, Neutrophils # (Auto) 3.0, Lymphocytes # (Auto) 1.5, Monocytes # (Auto) 0.5, Eosinophils # (Auto) 0.2, Basophils # (Auto) 0.0, Nucleated Red Blood Cells % (auto) 0.0, Anion Gap 5L, Glomerular Filtration Rate > 60.0, Blood Urea Nitrogen 22H, Creatinine 1.01, Sodium Level 139, Potassium Level 3.9, Chloride Level 107, Carbon Dioxide Level 27, Calcium Level 8.5L CBC/BMP Laboratory Tests 07/19/18 06:19 Red Blood Count 4.60, Mean Corpuscular Volume 90.4, Mean Corpuscular Hemoglobin 29.1, Mean Corpuscular Hemoglobin Concent 32.2, Red Cell Distribution Width 12.9, Neutrophils (%) (Auto) 58.0, Lymphocytes (%) (Auto) 28.0, Monocytes (%) (Auto) 9.5 H, Eosinophils (%) (Auto) 3.3 H, Basophils (%) (Auto) 0.6, Neutrophils # (Auto) 3.0, Lymphocytes # (Auto) 1.5, Monocytes # (Auto) 0.5, Eos inophils # (Auto) 0.2, Basophils # (Auto) 0.0, Calcium Level 8.5 L Microbiology Microbiology 07/16/18 Wound Culture - Final, Complete Staph.aureus Methicillin Resis 07/16/18 Anaerobic Culture - Final, Complete Discharge Medications Scheduled Aspirin (Aspirin EC) 81 Mg Tablet.dr, 81 MG PO QHS, (Reported) Atorvastatin Calcium (Atorvastatin Calcium) 40 Mg Tablet, 40 MG PO QHS, (Reported) Calcium Carbonate (Calcium) 600 Mg Tablet, 600 MG PO DAILY, (Reported) Fluticasone Propionate (Flonase Allergy Relief) 9.9 Ml [place].susp, 1 SPRAY NA QHS, (Reported) Linezolid (Linezolid) 600 Mg Tablet, 1 TAB PO BID Lisinopril (Lisinopril) 2.5 Mg Tablet, 2.5 MG PO QHS, (Reported) Lutein (Lutein) 20 Mg Capsule, 20 MG PO QHS, (Reported) Metoprolol Tartrate (Metoprolol Tartrate) 25 Mg Tablet, 12.5 MG PO BID, (Reported) [place]-3 Fatty Acids/Fish Oil (Fish Oil 1,000 mg Capsule) 1 Each Capsule, 1,000 MG PO DAILY, (Reported) Omeprazole (Omeprazole) 20 Mg Capsule.dr, 20 MG PO Q2D, (Reported) TAKES ONCE DAILY EVERY OTHER DAY - ALTERNATES WITH RANITIDINE Ranitidine HCl (Ranitidine HCl) 150 Mg Tablet, 1 TAB PO Q2D, (Reported) TAKES TWICE A DAY EVERY OTHER DAY - ALTERNATES WITH OMEPRAZOLE Terazosin HCl (Terazosin HCl) 2 Mg Capsule, 2 MG PO QHS, (Reported) Vitamin E (Vitamin E) 400 Unit Capsule, 400 UNIT PO DAILY, (Reported) Allergies Coded Allergies: No Known Allergies (Unverified , 09/23/14) JEANIE ZAMUDIO MD July 19, 2018 11:41
== END 2018-07-19 10:30 | disposition home or self-care (01) | DRG 496 ==
LOC: M ED 14:08 → EEVIPCON 15:48 → M ED INP 15:48 → M MS5PR 17:52
PROVIDERS: ADMIT Internal Medicine Nephrology; ATTEND Internal Medicine Nephrology
PROC: 0QDP0ZZ Extraction of Left Metatarsal, Open Approach (ICD-10-PCS; 2018-07-16)
PROC: 0QPP04Z Removal of Internal Fixation Device from Left Metatarsal, Open Approach (ICD-10-PCS; principal; 2018-07-16 09:00)
DX: T84.7XXA Infection and inflammatory reaction due to other internal orthopedic prosthetic devices, implants and grafts, initial encounter (principal); M86.8X7 Other osteomyelitis, ankle and foot; L03.116 Cellulitis of left lower limb; I25.10 Atherosclerotic heart disease of native coronary artery without angina pectoris; K21.9 Gastro-esophageal reflux disease without esophagitis; N40.0 Benign prostatic hyperplasia without lower urinary tract symptoms; E78.5 Hyperlipidemia, unspecified; Z95.1 Presence of aortocoronary bypass graft; I10 Essential (primary) hypertension; Z79.899 Other long term (current) drug therapy; Z79.82 Long term (current) use of aspirin; B95.62 Methicillin resistant Staphylococcus aureus infection as the cause of diseases classified elsewhere; Y83.1 Surgical operation with implant of artificial internal device as the cause of abnormal reaction of the patient, or of later complication, without mention of misadventure at the time of the procedure

== ENCOUNTER → 2018-08-01 | Outpatient (REF) | payer OTHER ==
[~2018-08-01] MED LIST: ASPI81TA26 PO; ATOR40TA75 PO; CALC600T5 PO; FISH1000 PO; FLON1SPR; LINE600T11 PO; LISI-1046 PO; LUTE20CA PO; METO25TA4 PO; OMEP-218 PO; RANI1TAB6 PO; TERA2CAP3 PO; VITA400C56 PO
[2018-08-01 12:20] LABS: HEMATOCRIT 38.5 % (42.0-52.0); HEMOGLOBIN 12.5 g/dl (13.5-17.5); MEAN CORPUSCULAR HGB CONC 32.5 g/dl (32.0-36.5); MEAN CORPUSCULAR VOLUME 89.3 fl (80.0-96.0); RED BLOOD COUNT 4.31 10^6/uL (4.30-6.10); WHITE BLOOD COUNT 4.2 10^3/uL (4.0-10.0)
[2018-08-01 12:41] LABS: PLATELET COUNT, AUTOMATED 78 10^3/uL (150-450)
[2018-08-01 12:51] LABS: ERYTHROCYTE SEDIMENTATION RATE 33 mm/hr (0-20)
== END ==
LOC: M LABDRAWC 11:20
PROVIDERS: ATTEND Nurse Practitioner Family
DX: I10 Essential (primary) hypertension (principal); E78.5 Hyperlipidemia, unspecified
CPT/HCPCS: 36415; 85027; 85049; 85055; 85652; 86140; G0463

== ENCOUNTER → 2018-08-17 | Outpatient (REF) | payer OTHER ==
[2018-08-18 12:55] LABS: BASO % 0.4 % (0.0-1.0); EOS # 0.2 10^3/uL (0.0-0.50); EOS % 3.4 % (0.0-3.0); HEMOGLOBIN 12.6 g/dl (13.5-17.5); LYMPH # 1.1 10^3/uL (1.5-4.5); LYMPH % 21.2 % (24.0-44.0); MEAN CORPUSCULAR HEMOGLOBIN 29.5 pg (27.0-33.0); MEAN CORPUSCULAR HGB CONC 31.5 g/dl (32.0-36.5); MEAN CORPUSCULAR VOLUME 93.7 fl (80.0-96.0); MONO # 0.5 10^3/uL (0.0-0.8); NEUTROPHILS # 3.4 10^3/uL (1.8-7.7); NEUTROPHILS % 64.8 % (36.0-66.0); PLATELET COUNT, AUTOMATED 211 10^3/uL (150-450); RED BLOOD COUNT 4.27 10^6/uL (4.30-6.10); WHITE BLOOD COUNT 5.3 10^3/uL (4.0-10.0)
[2018-08-18 13:05] LABS: BLOOD UREA NITROGEN 20 MG/DL (7-18); CALCIUM LEVEL 8.4 MG/DL (8.8-10.2); CARBON DIOXIDE LEVEL 30 MEQ/L (21-32); CHLORIDE LEVEL 108 MEQ/L (98-107); CREATININE FOR GFR 0.96 MG/DL (0.70-1.30); GLOMERULAR FILTRATION RATE > 60.0 (>42); GLUCOSE, FASTING 109 MG/DL (70-100); POTASSIUM SERUM 4.3 MEQ/L (3.5-5.1); SODIUM LEVEL 143 MEQ/L (136-145)
[2018-08-18 13:27] LABS: ERYTHROCYTE SEDIMENTATION RATE 26 mm/hr (0-20)
== END ==
LOC: M SFHCCLAY 15:15
PROVIDERS: ATTEND Internal Medicine Infectious Disease
DX: M86.272 Subacute osteomyelitis, left ankle and foot (principal)

== ENCOUNTER → 2018-12-08 | Outpatient (REF) | payer OTHER ==
[~2018-12-08] MED LIST changes: +LINE1TAB6 PO; -LINE600T11 PO; +RANI-356 PO; -RANI1TAB6 PO
[2018-12-08 12:23] LABS: BASO % 0.4 % (0.0-1.0); EOS # 0.1 10^3/uL (0.0-0.5); EOS % 2.3 % (0.0-3.0); HEMATOCRIT 41.9 % (42.0-52.0); HEMOGLOBIN 13.4 g/dl (13.5-17.5); LYMPH % 18.2 % (24.0-44.0); MEAN CORPUSCULAR HEMOGLOBIN 29.5 pg (27.0-33.0); MEAN CORPUSCULAR VOLUME 92.3 fl (80.0-96.0); MONO # 0.6 10^3/uL (0.0-0.8); MONO % 9.9 % (0.0-5.0); NEUTROPHILS # 3.9 10^3/uL (1.5-8.5); NEUTROPHILS % 68.8 % (36.0-66.0); PLATELET COUNT, AUTOMATED 151 10^3/uL (150-450); RED BLOOD COUNT 4.54 10^6/uL (4.30-6.10); WHITE BLOOD COUNT 5.7 10^3/uL (4.0-10.0)
[2018-12-08 13:04] LABS: ALBUMIN 3.4 GM/DL (3.2-5.2); ALT/SGPT 25 U/L (12-78); BILIRUBIN,TOTAL 0.5 MG/DL (0.2-1.0); BLOOD UREA NITROGEN 18 MG/DL (7-18); C REACTIVE PROTEIN QUANTITATIV 0.34 MG/DL (0.00-0.30); CALCIUM LEVEL 8.6 MG/DL (8.8-10.2); CARBON DIOXIDE LEVEL 31 MEQ/L (21-32); CHLORIDE LEVEL 106 MEQ/L (98-107); CHOLESTEROL LEVEL 105 MG/DL (<200); CHOLESTEROL RISK RATIO 2.625 (<5); CREATININE FOR GFR 0.93 MG/DL (0.70-1.30); GLOMERULAR FILTRATION RATE > 60.0 (>42); GLUCOSE, FASTING 80 MG/DL (70-100); HDL CHOLESTEROL 40 MG/DL (>40); LDL CHOLESTEROL 43 MG/DL (<100); NON-HDL-C 65 MG/DL; POTASSIUM SERUM 4.4 MEQ/L (3.5-5.1); SODIUM LEVEL 140 MEQ/L (136-145); TOTAL PROTEIN 7.1 GM/DL (6.4-8.2); TRIGLYCERIDES LEVEL 110 MG/DL (<150)
[2018-12-08 13:29] LABS: ERYTHROCYTE SEDIMENTATION RATE 25 mm/hr (0-20)
== END ==
LOC: M SFHCCLAY 09:15
PROVIDERS: ATTEND Family Medicine
DX: I10 Essential (primary) hypertension (principal); E78.5 Hyperlipidemia, unspecified; M86.272 Subacute osteomyelitis, left ankle and foot

== ENCOUNTER → 2019-08-26 | Outpatient (CLI) | payer OTHER ==
[~2019-08-26] MED LIST changes: -LISI-1046 PO; +LISI2.5T2 PO; -RANI-356 PO; +RANI-397 PO
== END ==
LOC: M LABSMTC 09:55
PROVIDERS: ATTEND Orthopaedic Surgery
DX: Z03.818 Encounter for observation for suspected exposure to other biological agents ruled out (principal)
CPT/HCPCS: C9803; U0003

== ENCOUNTER → 2019-12-10 | Outpatient (REF) | payer OTHER ==
[~2019-12-10] MED LIST changes: -CALC600T5 PO; +CALC600T61 PO
[2019-12-10 13:00] LABS: BASO % 0.4 % (0.0-1.0); EOS # 0.2 10^3/uL (0.0-0.5); EOS % 2.9 % (0.0-3.0); HEMOGLOBIN 12.8 g/dl (13.5-17.5); LYMPH % 17.6 % (24.0-44.0); MEAN CORPUSCULAR HEMOGLOBIN 30.2 pg (27.0-33.0); MEAN CORPUSCULAR HGB CONC 32.8 g/dl (32.0-36.5); MONO # 0.6 10^3/uL (0.0-0.8); MONO % 11.2 % (0.0-5.0); NEUTROPHILS # 3.8 10^3/uL (1.5-8.5); NEUTROPHILS % 67.7 % (36.0-66.0); PLATELET COUNT, AUTOMATED 165 10^3/uL (150-450); RED BLOOD COUNT 4.24 10^6/uL (4.30-6.10); WHITE BLOOD COUNT 5.6 10^3/uL (4.0-10.0)
[2019-12-10 13:36] LABS: ALBUMIN 3.4 GM/DL (3.2-5.2); ALT/SGPT 28 U/L (12-78); BILIRUBIN,TOTAL 0.6 MG/DL (0.2-1.0); BLOOD UREA NITROGEN 22 MG/DL (7-18); CALCIUM LEVEL 8.6 MG/DL (8.8-10.2); CARBON DIOXIDE LEVEL 30 MEQ/L (21-32); CHLORIDE LEVEL 108 MEQ/L (98-107); CHOLESTEROL LEVEL 98 MG/DL (<200); CHOLESTEROL RISK RATIO 2.333 (<5); CREATININE FOR GFR 0.98 MG/DL (0.70-1.30); GLOMERULAR FILTRATION RATE > 60.0 (>35); GLUCOSE, FASTING 86 MG/DL (70-100); HDL CHOLESTEROL 42 MG/DL (>40); LDL CHOLESTEROL 39 MG/DL (<100); MAGNESIUM LEVEL 2.2 MG/DL (1.8-2.4); NON-HDL-C 56 MG/DL; POTASSIUM SERUM 4.5 MEQ/L (3.5-5.1); SODIUM LEVEL 142 MEQ/L (136-145); TRIGLYCERIDES LEVEL 86 MG/DL (<150)
== END ==
LOC: M SFHCCLAY 08:34
PROVIDERS: ATTEND Family Medicine
DX: E78.5 Hyperlipidemia, unspecified (principal); I10 Essential (primary) hypertension; K21.9 Gastro-esophageal reflux disease without esophagitis; Z23 Encounter for immunization
CPT/HCPCS: 80053; 80061; 83735; 85025; 90682; G0008; G0463

== ENCOUNTER → 2020-08-28 | Outpatient (CLI) | payer MEDICARE ==
--- NOTE | 2020-08-28 09:15 | REP ---
INDICATION: LOW BACK PAIN. COMPARISON: None. TECHNIQUE: Five views lumbosacral spine. FINDINGS: There is no compression fracture. There is spondylolysis of L5. There is mild anterior grade 1 spondylolisthesis of L5 on S1. There is moderate spurring of the vertebral bodies diffusely. There is mild disc space narrowing and subchondral sclerosis at all levels, with a more moderate degree of disc space narrowing and subchondral sclerosis at L5-S1. There is mild curvature toward the left. 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 No compression fracture. [id number] degenerative disc changes. <Electronically signed by Mike Tai > 08/28/20 [id number]
== END ==
LOC: M CLY 07:41
PROVIDERS: ATTEND Family Medicine
DX: M43.06 Spondylolysis, lumbar region (principal); M51.36 Other intervertebral disc degeneration, lumbar region; M54.5 Low back pain
CPT/HCPCS: 72110; G0463

== ENCOUNTER → 2020-12-05 | Outpatient (REF) | payer MEDICARE ==
[~2020-12-05] MED LIST changes: -LISI2.5T2 PO; +LISI2.5T9 PO
[2020-12-05 15:20] LABS: BASO % 0.6 % (0.0-1.0); EOS # 0.2 10^3/uL (0.0-0.5); EOS % 3.2 % (0.0-3.0); HEMATOCRIT 41.7 % (42.0-52.0); HEMOGLOBIN 13.4 g/dl (13.5-17.5); LYMPH % 19.2 % (24.0-44.0); MEAN CORPUSCULAR HEMOGLOBIN 29.8 pg (27.0-33.0); MEAN CORPUSCULAR HGB CONC 32.1 g/dl (32.0-36.5); MEAN CORPUSCULAR VOLUME 92.7 fl (80.0-96.0); MONO # 0.6 10^3/uL (0.0-0.8); MONO % 10.4 % (2.0-8.0); NEUTROPHILS # 3.5 10^3/uL (1.5-8.5); NEUTROPHILS % 66.4 % (36.0-66.0); PLATELET COUNT, AUTOMATED 161 10^3/uL (150-450); WHITE BLOOD COUNT 5.3 10^3/uL (4.0-10.0)
[2020-12-05 15:31] LABS: ALBUMIN 3.4 GM/DL (3.2-5.2); ALT/SGPT 28 U/L (12-78); BILIRUBIN,TOTAL 0.8 MG/DL (0.2-1.0); BLOOD UREA NITROGEN 27 MG/DL (7-18); CARBON DIOXIDE LEVEL 30 MEQ/L (21-32); CHLORIDE LEVEL 108 MEQ/L (98-107); CHOLESTEROL LEVEL 92 MG/DL (<200); CHOLESTEROL RISK RATIO 2.421 (<5); CREATININE FOR GFR 1.27 MG/DL (0.70-1.30); GLOMERULAR FILTRATION RATE 57.9 (>35); GLUCOSE, FASTING 96 MG/DL (70-100); HDL CHOLESTEROL 38 MG/DL (>40); IRON (FE) 78 UG/DL (65-175); LDL CHOLESTEROL 37 MG/DL (<100); MAGNESIUM LEVEL 2.2 MG/DL (1.8-2.4); NON-HDL-C 54 MG/DL; POTASSIUM SERUM 4.9 MEQ/L (3.5-5.1); SODIUM LEVEL 141 MEQ/L (136-145); TRIGLYCERIDES LEVEL 83 MG/DL (<150)
[2020-12-05 15:34] LABS: VITAMIN B12 LEVEL 952 PG/ML (247-911)
[2020-12-05 15:35] LABS: FOLATE > 24.0 NG/ML (>5.4)
== END ==
LOC: M SFHCCLAY 10:56
PROVIDERS: ATTEND Family Medicine
DX: E78.5 Hyperlipidemia, unspecified (principal); I10 Essential (primary) hypertension; K21.9 Gastro-esophageal reflux disease without esophagitis; D50.8 Other iron deficiency anemias
CPT/HCPCS: 80053; 80061; 82607; 82746; 83540; 83735; 85025; 90682; G0008; G0463

== ENCOUNTER → 2021-07-17 | Outpatient (CLI) | payer MEDICARE ==
[~2021-07-17] MED LIST changes: +OMEP-173 PO; -OMEP-218 PO
== END ==
LOC: M CLY 10:27
PROVIDERS: ATTEND Family Medicine
DX: M16.11 Unilateral primary osteoarthritis, right hip (principal); M25.551 Pain in right hip

== ENCOUNTER → 2021-08-14 | Outpatient (CLI) | payer MEDICARE ==
[~2021-08-14] MED LIST changes: +GASTROGRAFIN SOLUTION 30ML (Q9963) ONE
== END ==
LOC: M PLAIMG 08:54
PROVIDERS: ATTEND Family Medicine
DX: M48.061 Spinal stenosis, lumbar region without neurogenic claudication (principal); M51.26 Other intervertebral disc displacement, lumbar region; M47.816 Spondylosis without myelopathy or radiculopathy, lumbar region; K86.2 Cyst of pancreas; N28.1 Cyst of kidney, acquired; D73.4 Cyst of spleen; K44.9 Diaphragmatic hernia without obstruction or gangrene
CPT/HCPCS: 72148; 74176; Q9963

== ENCOUNTER → 2021-12-18 | Outpatient (REF) | payer MEDICARE ==
[~2021-12-18] MED LIST changes: -GASTROGRAFIN SOLUTION 30ML (Q9963) ONE
[2021-12-18 11:30] LABS: BASO % 0.4 % (0.0-1.0); EOS # 0.2 10^3/uL (0.0-0.5); EOS % 3.8 % (0.0-3.0); HEMATOCRIT 41.8 % (42.0-52.0); HEMOGLOBIN 13.5 g/dl (13.5-17.5); LYMPH # 0.9 10^3/uL (1.5-5.0); LYMPH % 17.8 % (24.0-44.0); MEAN CORPUSCULAR HEMOGLOBIN 30.6 pg (27.0-33.0); MEAN CORPUSCULAR HGB CONC 32.3 g/dl (32.0-36.5); MEAN CORPUSCULAR VOLUME 94.8 fl (80.0-96.0); MONO # 0.6 10^3/uL (0.0-0.8); MONO % 11.7 % (2.0-8.0); NEUTROPHILS # 3.4 10^3/uL (1.5-8.5); NEUTROPHILS % 65.9 % (36.0-66.0); PLATELET COUNT, AUTOMATED 145 10^3/uL (150-450); RED BLOOD COUNT 4.41 10^6/uL (4.30-6.10); WHITE BLOOD COUNT 5.2 10^3/uL (4.0-10.0)
[2021-12-18 12:45] LABS: ALBUMIN 3.5 GM/DL (3.2-5.2); ALT/SGPT 28 U/L (12-78); BILIRUBIN,TOTAL 0.6 MG/DL (0.2-1.0); BLOOD UREA NITROGEN 25 MG/DL (7-18); CALCIUM LEVEL 8.8 MG/DL (8.8-10.2); CARBON DIOXIDE LEVEL 29 MEQ/L (21-32); CHLORIDE LEVEL 110 MEQ/L (98-107); CHOLESTEROL LEVEL 98 MG/DL (<200); CHOLESTEROL RISK RATIO 2.333 (<5); CREATININE FOR GFR 1.17 MG/DL (0.70-1.30); GLOMERULAR FILTRATION RATE > 60.0 (>35); GLUCOSE, FASTING 100 MG/DL (70-100); HDL CHOLESTEROL 42 MG/DL (>40); IRON (FE) 61 UG/DL (65-175); LDL CHOLESTEROL 36 MG/DL (<100); MAGNESIUM LEVEL 2.3 MG/DL (1.8-2.4); NON-HDL-C 56 MG/DL; POTASSIUM SERUM 4.5 MEQ/L (3.5-5.1); SODIUM LEVEL 141 MEQ/L (136-145); TRIGLYCERIDES LEVEL 100 MG/DL (<150)
[2021-12-18 14:18] LABS: VITAMIN B12 LEVEL 664 PG/ML (247-911)
== END ==
LOC: M SFHCCLAY 08:46
PROVIDERS: ATTEND Family Medicine
DX: I10 Essential (primary) hypertension (principal); E78.5 Hyperlipidemia, unspecified; D50.8 Other iron deficiency anemias

== ENCOUNTER → 2023-08-16 | Outpatient (CLI) | payer OTHER | LOC: M CARPUL 14:04 | PROVIDERS: ATTEND Family Medicine | DX: I49.3 Ventricular premature depolarization (principal); Z86.79 Personal history of other diseases of the circulatory system; I08.3 Combined rheumatic disorders of mitral, aortic and tricuspid valves ==

== ENCOUNTER → 2023-09-19 | Outpatient (REF) | payer OTHER | LOC: M LAB REF 16:08 | PROVIDERS: ATTEND Surgery | DX: L90.5 Scar conditions and fibrosis of skin (principal) ==

== ENCOUNTER → 2024-10-08 | Outpatient (REF) | payer MEDICARE ==
[2024-10-08 18:18] LABS: PLATELET COUNT, AUTOMATED 119 10^3/uL (150-450)
[2024-10-08 18:27] LABS: IRON (FE) 65.0 UG/DL (65-175); PERCENT SATURATION 23.4 % (19.7-50.0)
== END ==
LOC: M SFHCCLAY 13:29
PROVIDERS: ATTEND Family Medicine
DX: D50.9 Iron deficiency anemia, unspecified (principal)